=== PATIENT | female | born 1990 ===

== ENCOUNTER 2024-11-03 09:00 | Day surgery (SDC) | payer OTHER ==
[2024-11-01 14:50] VITALS: BP 118/73
[~2024-11-03] VITALS: Ht 175.3 cm; Wt 70.8 kg
[~2024-11-03 09:00] MED LIST: FUSION PLUS CA1 EACH PO; IRBESARTAN-HCT1 EACH PO; SYMBICORT 16010.2 GM
[2024-11-03] MEDS ORDERED: CEFOXITIN SODIUM 2,000 MG VIAL IV ONE (12:00)
[2024-11-03] MEDS ORDERED: POVIDONE-IODINE 118 ML BOTT TOP ONE (13:23)
[2024-11-03] MEDS ORDERED: DOXYCYCLINE MO100 MG PO (15:08)
[2024-11-03] MEDS ORDERED: NAPR500T14 PO (15:08)
[2024-11-03] MEDS ORDERED: PROMETHAZINE HCL 50 MG/ML AMPUL IM ONE (15:15)
== END 2024-11-03 21:25 | disposition home or self-care (01) ==
LOC: CIR.AMB 09:00
PROVIDERS: ATTEND Obstetrics & Gynecology
DX: N92.0 Excessive and frequent menstruation with regular cycle (principal); D25.0 Submucous leiomyoma of uterus; N84.0 Polyp of corpus uteri